=== PATIENT | female | born 1990 | race African-American/Black ===

== ENCOUNTER 2025-01-13 15:56 | Inpatient (IN) | payer OTHER ==
[2025-01-13 17:14] VITALS: BMI 28.7
[2025-01-13] MEDS ORDERED: BENZONATATE 200 MG CAPSULE PO PRN (17:50)
[2025-01-13] MEDS ORDERED: DICYCLOMINE HCL 10 MG CAPSULE PO PRN (17:50)
[2025-01-13] MEDS ORDERED: BISMUTH SUBSALICYLATE 524 MG/30 ML PO PRN (17:50)
[2025-01-13] MEDS ORDERED: chlordiazePOXIDE HCL 25 MG CAPSULE PO PRN (17:50)
[2025-01-13] MEDS ORDERED: NALOXONE (NARCAN) HCL 4 MG/0.1 ML SPRAY NS PRN (17:50)
[2025-01-13] MEDS ORDERED: NICOTINE POLACRILEX 2 MG GUM BUC PRN (17:50)
[2025-01-13] MEDS ORDERED: MAGNESIUM HYDROX 2400MG/30ML ORAL SUSPENSION 30 ML CUP PO PRN (17:50)
[2025-01-13] MEDS ORDERED: IBUPROFEN 600 MG TABLET (FP) PO PRN (17:50)
[2025-01-13] MEDS ORDERED: LOPERAMIDE HCL 2 MG CAPSULE PO PRN (17:50)
[2025-01-13] MEDS ORDERED: POLYETHYLENE GLYCOL (HEALTHYLAX) 3350 17 GM PACKET PO PRN (17:50)
[2025-01-13] MEDS ORDERED: BENZOCAINE/MENTHOL (CHLORASEPTIC ) LOZENGE MM PRN (17:50)
[2025-01-13] MEDS ORDERED: IBUPROFEN 400 MG TABLET (FP) PO PRN (17:50)
[2025-01-13] MEDS ORDERED: guaiFENesin 600 MG TABLET.ER (FP) PO PRN (17:50)
[2025-01-13] MEDS ORDERED: MAG HYDROX/AL HYDROX/SIMETH 30 ML UNIT-DOSE CUP PO PRN (17:50)
[2025-01-13] MEDS: THIAMINE 100 MG TABLET PO SCH (23:18)
[2025-01-13] MEDS: MELATONIN 5 MG TABLETS PO SCH (23:18)
[2025-01-13] MEDS: chlordiazePOXIDE HCL 25 MG CAPSULE PO SCH (23:18)
[2025-01-13] MEDS: hydrOXYzine PAMOATE 25 MG CAPSULE (FP) PO PRN (23:18)
[2025-01-13] MEDS: METHOCARBAMOL 500 MG TABLET PO PRN (23:18)
[2025-01-13] MEDS: ONDANSETRON *ODT* 4 MG TABLET SL PRN (23:18)
[2025-01-14] MEDS: NICOTINE 14 MG/24 HOURS TOPICAL PATCH TD SCH (10:55)
[2025-01-14] MEDS: PRENATAL VITAMINS W/ FOLIC ACID TABLET (FP) PO SCH (10:55)
[2025-01-14] MEDS: ACETAMINOPHEN 325 MG TABLET (FP) PO PRN (10:58)
[2025-01-14 12:29] LABS: HEMATOCRIT 37.5 % (34.1-44.9); HEMOGLOBIN 12.7 g/dL (11.2-15.7); MCHC 33.9 g/dl (32.2-35.5); MEAN PLT VOLUME 11.1 fl (9.4-12.3); PLATELET COUNT 107 x10^3/uL (182-369); RDW 15.2 % (12.1-16.8)
[2025-01-14 12:34] LABS: CHLORIDE 102 mmol/L (98-107); POTASSIUM 3.3 mmol/L (3.5-5.1); SODIUM 139 mmol/L (136-145)
[2025-01-14 12:38] LABS: BLOOD UREA NITROGEN 5.7 mg/dL (7-18); GLUCOSE,RANDOM 93 mg/dL (74-106)
[2025-01-14 12:40] LABS: ALBUMIN 3.1 g/dl (3.4-5.0); ANION GAP 7 mmol/L (4-13); CALCIUM 8.9 mg/dL (8.5-10.1); CO2 29 mmol/L (21-32)
[2025-01-14 12:43] LABS: BILIRUBIN,TOTAL 0.6 mg/dL (0.2-1); CREATININE 0.7 mg/dL (0.55-1.3); SGOT/AST 87 U/L (15-37); SGPT/ALT 41 U/L (13-61); TOT PROT 6.6 g/dl (6.4-8.2)
[2025-01-14 12:44] LABS: ALK PHOS 189 U/L (45-117)
[2025-01-14] MEDS: DICYCLOMINE HCL 10 MG CAPSULE PO PRN (17:04)
[2025-01-15] MEDS: chlordiazePOXIDE HCL 25 MG CAPSULE PO SCH (06:00)
[2025-01-15] MEDS: POTASSIUM CHLORIDE ORAL LIQUID 20 MEQ/15 ML PO ONE (14:44)
[2025-01-16] MEDS ORDERED: chlordiazePOXIDE HCL 10 MG CAPSULE PO PRN
[2025-01-16] MEDS: POTASSIUM CHLORIDE ORAL LIQUID 20 MEQ/15 ML PO ONE (00:14)
[2025-01-16] MEDS: chlordiazePOXIDE HCL 10 MG CAPSULE PO SCH (05:59)
[2025-01-17] MEDS: chlordiazePOXIDE HCL 10 MG CAPSULE PO SCH (05:50)
[2025-01-17 09:15] VITALS: BP 111/83; PULSE 106; RESP 20; TEMP 97.8
[2025-01-18] MEDS ORDERED: chlordiazePOXIDE HCL 10 MG CAPSULE PO ONE (05:00)
== END 2025-01-17 10:20 | disposition home or self-care (01) | DRG 775 ==
LOC: YASAS 15:56 → Y6N 22:59
PROVIDERS: ADMIT Allergy & Immunology; ATTEND Allergy & Immunology
PROC: HZ2ZZZZ Detoxification Services for Substance Abuse Treatment (ICD-10-PCS; principal; 2025-01-13)
DX: F10.230 Alcohol dependence with withdrawal, uncomplicated (principal); F17.210 Nicotine dependence, cigarettes, uncomplicated; F10.282 Alcohol dependence with alcohol-induced sleep disorder; F10.280 Alcohol dependence with alcohol-induced anxiety disorder; E87.6 Hypokalemia; E78.2 Mixed hyperlipidemia; I10 Essential (primary) hypertension; J45.909 Unspecified asthma, uncomplicated; Z62.810 Personal history of physical and sexual abuse in childhood; Z88.0 Allergy status to penicillin
CPT/HCPCS: 36415; 80053; 80305; 80307; 81025; 84132; 85027; 86780; 93005; 93010; Q0162